=== PATIENT | male | born 1995 | race Caucasian/White ===

== ENCOUNTER 2016-09-30 13:31 | Emergency (ER) | payer MEDICAID, OTHER ==
[~2016-09-30] VITALS: Ht 160 cm; Wt 72.6 kg
[2016-09-30 13:40] VITALS: BP 148/119
--- NOTE | 2016-09-30 13:42 | NUR ---
Patient ambulated to bed 6 with family. RN evaluating patient at bedside.
--- NOTE | 2016-09-30 14:00 | NUR ---
PATIENT PRESENTS TO ED WITH C/O LEFT EYE PAIN. PT GOT SAND IN HIS EYE WHILE AT WORK . PT STATES IT FEELS LIKE THERE IS SOMETHING IN MY EYE . DENIES N/V/D; SKIN IS PINK/WARM/DRY; AAOX4 WITH EVEN AND STEADY GAIT; LUNGS CLEAR BL; HR EVEN AND REGULAR; PT DENIES ANY FEVER, CP, SOB, OR COUGH AT THIS TIME; PATIENT STATES PAIN OF 3/10 AT THIS TIME; VSS; PATIENT POSITIONED FOR COMFORT; HOB ELEVATED; BEDRAILS UP X2; BED DOWN. ER MD MADE AWARE OF PT STATUS.
[2016-09-30] MEDS ORDERED: TETRACAINE 0.5% OPTH SOL 2 ML BTL OP SCH (14:10)
--- NOTE | 2016-09-30 14:26 | NUR ---
UTILITIES OPERATOR AT BEDSIDE.
[2016-09-30 15:03] VITALS: BP 131/74
[2016-09-30] MEDS ORDERED: GENTAMICIN OP 0.3% 10.5 MG/3.5 GM TUBE ONE (15:03)
--- NOTE | 2016-09-30 15:03 | NUR ---
Patient discharged with v/s stable. Written and verbal after care instructions given and explained. Patient alert, oriented and verbalized understanding of instructions. Ambulatory with steady gait. All questions addressed prior to discharge. ID band removed. Patient advised to follow up with PMD. Rx of IBU AND GENTAK .3% given. Patient educated on indication of medication including possible reaction and side effects. Opportunity to ask questions provided and answered.
== END 2016-09-30 15:03 | disposition home or self-care (01) ==
LOC: MED 13:31
DX: T15.02XA Foreign body in cornea, left eye, initial encounter (principal); X58.XXXA Exposure to other specified factors, initial encounter; Y93.89 Activity, other specified; Y92.89 Other specified places as the place of occurrence of the external cause; Y99.8 Other external cause status
CPT/HCPCS: 65222; 99284

== ENCOUNTER 2017-05-26 12:09 | Emergency (ER) | payer OTHER ==
[~2017-05-26] VITALS: Ht 162.6 cm; Wt 79.4 kg
[2017-05-26 12:14] VITALS: BP 134/76
--- NOTE | 2017-05-26 12:17 | NUR ---
LACERATION WRAPPED WITH GAUZE. PT SENT TO LOBBY. VSS.
--- NOTE | 2017-05-26 16:28 | NUR ---
PATIENT TAKEN TO BED 01
[2017-05-26] MEDS: MORPHINE SULFATE 4 MG/ML SYR IM ONE (16:36)
--- NOTE | 2017-05-26 16:39 | NUR ---
PATIENT PRESENTS TO ED WITH RIGHT THUMB LACERATION X 6 HOURS . PT STATES HR WAS CLEANING HIS RIMS AND GOT HIS THUMB GOT STUCK BETWEEN THE RIM AND HE HAS TWO LACERATIONS ON EACH SIDE OF THE RIGHT THUMB . DENIES N/V/D; SKIN IS PINK/WARM/DRY; AAOX4 WITH EVEN AND STEADY GAIT; LUNGS CLEAR BL; HR EVEN AND REGULAR; PT DENIES ANY FEVER, CP, SOB, OR COUGH AT THIS TIME; PATIENT STATES PAIN OF 9/10 AT THIS TIME; VSS; PATIENT POSITIONED FOR COMFORT; HOB ELEVATED; BEDRAILS UP X1, AT BEDSIDE; BED DOWN. ER MD MADE AWARE OF PT STATUS.
[2017-05-26] MEDS: BACITRACIN OINT 500 UNITS/GM PKT TP ONE (17:29)
[2017-05-26] MEDS: LIDOCAINE 1% ***ER ONLY *** 10 MG/ML VIAL INJ ONE (17:30)
[2017-05-26] MEDS ORDERED: LIDOCAINE 2% 1000 MG/50 ML VIAL INJ ONE (17:33)
[2017-05-26 18:40] VITALS: BP 134/76
--- NOTE | 2017-05-26 18:40 | NUR ---
Patient discharged with v/s stable. Written and verbal after care instructions given and explained. Patient alert, oriented and verbalized understanding of instructions. Ambulatory with steady gait. All questions addressed prior to discharge. ID band removed. Patient advised to follow up with PMD. Rx of NORCO AND IBUPROFEN given. Patient educated on indication of medication including possible reaction and side effects. Opportunity to ask questions provided and answered.
== END 2017-05-26 18:40 | disposition home or self-care (01) ==
LOC: MED 12:09
DX: S61.011A Laceration without foreign body of right thumb without damage to nail, initial encounter (principal); X58.XXXA Exposure to other specified factors, initial encounter; Y93.E9 Activity, other interior property and clothing maintenance; Y92.89 Other specified places as the place of occurrence of the external cause; Y99.8 Other external cause status
CPT/HCPCS: 12001; 73140; 90471; 90715; 96372; 99284; J2001; J2270